=== PATIENT | female | born 1955 | race Caucasian/White ===

== ENCOUNTER 2021-06-27 12:35 | Outpatient (REF) | payer BC, SELFPAY ==
--- NOTE | ~2021-06-27 | MM_ITS ---
EXAMINATION: MM SCREENING DIGITAL BREAST TOMOSYNTHESIS, BILATERAL CLINICAL INFORMATION: Left lumpectomy for infiltrating lobular cancer 2013. Right lumpectomy for LCIS 2013. Due for yearly. COMPARISON: Mammography: 06/25/2020, 06/20/2019, 06/17/2018 TECHNIQUE: Digital breast tomosynthesis is performed in both the craniocaudal and mediolateral oblique views along with computer-aided detection (CAD). Synthesized 2D images are generated from the tomosynthesis. Additional left MLO and exaggerated left CC views are provided. FINDINGS: The breasts are heterogeneously dense, which may obscure small masses (ACR BI-RADS breast composition Category c). Breast tissue composition borders on extremely dense. There are post therapy changes bilateral breasts with stable scarring. There is no interval mass or architectural abnormality. There are 2 clip markers on the right and surgical clips left axilla. There are stable calcifications right breast upper outer quadrant and mid 9:00 position, respectively. No significant changes. MM/MM tomosynthesis screening BI IMPRESSION: There are no significant changes from prior study. Bilateral post therapy changes. ASSESSMENT: BI-RADS 2: Benign RECOMMENDATION: Routine annual mammography screening. This patient's information was entered into a reminder system with a target due date for their next mammogram.
== END 2021-06-27 12:36 | disposition home or self-care (01) ==
LOC: HO.MAMMO 12:35
PROVIDERS: Visit Provider Surgery
DX: Z12.31 Encounter for screening mammogram for malignant neoplasm of breast (principal)
CPT/HCPCS: 77063; 77067

== ENCOUNTER 2022-07-01 11:14 | Outpatient (REF) | payer MEDICARE, BC, SELFPAY ==
--- NOTE | ~2022-07-01 | MM_ITS ---
EXAMINATION: MM SCREENING DIGITAL BREAST TOMOSYNTHESIS, BILATERAL CLINICAL INFORMATION: Screening. Asymptomatic. Left infiltrating lobular cancer status post lumpectomy, 2013. Right LCIS status post lumpectomy, 2013. COMPARISON: Mammography: 06/27/2021, 05/26/2020, 06/20/2019, 06/17/2018 TECHNIQUE: Digital breast tomosynthesis is performed in both the craniocaudal and mediolateral oblique views along with computer-aided detection (CAD). Synthesized 2D images are generated from the tomosynthesis. FINDINGS: The breasts are heterogeneously dense, which may obscure small masses (ACR BI-RADS breast composition Category c). Parenchymal pattern is similar to prior studies. Breast tissue composition borders on extremely dense. There is stable minor scarring consistent with the prior surgery. No interval mass or architectural abnormality. There calcifications upper outer posterior outer right breast are similar to prior studies. No significant changes. MM/MM tomosynthesis screening BI IMPRESSION: No mammographic evidence of malignancy. ASSESSMENT: BI-RADS 2: Benign RECOMMENDATION: Routine annual mammography screening. This patient's information was entered into a reminder system with a target due date for their next mammogram.
== END 2022-07-01 11:15 | disposition home or self-care (01) ==
LOC: HO.MAMMO 11:14
PROVIDERS: Visit Provider Surgery
DX: Z12.31 Encounter for screening mammogram for malignant neoplasm of breast (principal)
CPT/HCPCS: 77063; 77067